=== PATIENT | male | born 1965 | race American Indian/Alaskan Native ===

== ENCOUNTER 2016-04-11 05:15 | Emergency (ER) | payer BC ==
[2016-04-11] MEDS ORDERED: NORCO 5/325 ONE (05:25)
[2016-04-11 05:39] VITALS: BP 154/99
[2016-04-11] MEDS ORDERED: NORCO 5/325 PO ONE (06:27)
--- NOTE | 2016-04-11 08:19 | XRay Report ---
RIGHT SHOULDER RADIOGRAPHS INDICATION: Arm pain. COMPARISON: None similar at this institution. FINDINGS: Frontal and Y views of the right shoulder, 3 projections demonstrate normal humeral head contour, well positioned against the glenoid. Normal acromioclavicular joint. Preserved scapular contour. Normal visualized soft tissues, right ribs and lung. CONCLUSION: No acute right shoulder radiographic abnormality, as described. Thank you for the opportunity to participate in this patient's care.
--- NOTE | 2016-04-11 10:41 | Emergency Department Report ---
Chief Complaint: Extremity Problem,Nontraumatic Stated Complaint: RIGHT ARM PAIN Time Seen by Provider: 04/11/16 09:52 - HPI History of Present Illness: 50-year-old female presents today with right arm pain times one to 2 weeks. Denies recent injury or trauma. Patient states that he has history of neck injury and was diagnosed with a pinched nerve in his neck 15 years ago causing radiating pain to his right arm. Describes his pain as a 10 out of 10 constant , sharp, throbbing pain. Tried Motrin and ibuprofen without relief. Denies numbness, weakness, paresthesias. Denies fever, chills, nausea, vomiting, chest pain, shortness of breath, abdominal pain. - ROS Review of Systems: Per HPI - Exam Vital Signs: Vital Signs 04/11/16 05:21 Temperature 97.8 F Pulse Rate 87 Respiratory 20 Rate Blood Pressure 154/99 O2 Sat by Pulse 99 Oximetry Physical Exam: General: 50-year-old female in no acute distress. Well-developed, well- nourished. CV: Regular rate and rhythm. No murmurs rubs or gallops. Lungs: Clear to auscultation bilaterally. Abdomen: No tenderness to palpation. Nondistended. No guarding or rebound tenderness. Neck: No midline or paraspinal tenderness. Full range of motion. Left upper extremity: Full range of motion. Tenderness to palpation of shoulder joints, left trapezius and deltoid muscle groups. Normal sensation. 2 point discrimination intact. Peripheral pulses intact. Capillary refill less than 2 seconds. MSE screening note: Focused history and physical exam performed. Due to findings the following was ordered: ED Disposition for MSE Disposition: MEDICAL SCREENING EXAM-LEFT Condition: Stable Referrals: PRIMARY CARE, [Primary Care Provider] - 3-5 Days
== END 2016-04-11 10:37 | disposition left against medical advice (07) ==
LOC: ED 05:15
DX: M79.601 Pain in right arm (principal); Z53.21 Procedure and treatment not carried out due to patient leaving prior to being seen by health care provider

== ENCOUNTER 2018-07-01 06:06 | Emergency (ER) | payer BC ==
[2018-07-01 06:34] LABS: Basophils # (Auto) 0.1 K/mm3 (0.0-0.1); Eosinophils # (Auto) 0.1 K/mm3 (0.0-0.4); Eosinophils % (Auto) 1.3 % (0.0-4.3); Hematocrit 48.5 % (35.5-45.6); Hemoglobin 16.6 gm/dl (11.8-15.2); Lymphocytes # (Auto) 3.7 K/mm3 (1.2-5.4); Lymphocytes % (Auto) 45.9 % (13.4-35.0); Mean Corpuscular HGB Conc 34 % (32-34); Mean Corpuscular Volume 93 fl (84-94); Monocytes # (Auto) 0.6 K/mm3 (0.0-0.8); Monocytes % (Auto) 7.8 % (0.0-7.3); Platelet Count 298 K/mm3 (140-440); Red Blood Count 5.19 M/mm3 (3.65-5.03); Red Cell Distribution Width 13.4 % (13.2-15.2)
[2018-07-01 06:50] LABS: Bilirubin,Urine NEG (Negative); Blood,Urine SM (Negative); Color,Urine Yellow (Yellow); Mucus,Urine 2+ /HPF
[2018-07-01 06:57] LABS: Alanine Aminotransferase 19 units/L (7-56); Albumin 4.6 g/dL (3.9-5); BUN/Creatinine Ratio 11; Blood Urea Nitrogen 11 mg/dL (9-20); Calcium 9.5 mg/dL (8.4-10.2); Hemolysis Index 4
[2018-07-01] MEDS ORDERED: MORPHINE IV ONE ×2 (09:12→10:43)
[2018-07-01] MEDS ORDERED: ZOFRAN IV ONE (09:12)
[2018-07-01] MEDS ORDERED: NACL 0.9% 1000 ML 1,000 ML IV ONE (09:12)
--- NOTE | 2018-07-01 09:52 | Emergency Department Report ---
ED General Adult HPI - General Chief complaint: Abdominal Pain Stated complaint: ABD PAIN Time Seen by Provider: 07/01/18 08:48 Source: patient Mode of arrival: Ambulatory Limitations: No Limitations - History of Present Illness Initial comments: Patient complains a lot of quadrant pain for the last 2-3 weeks. Patient also complains of nausea and vomiting as well. Symptoms may worsen by eating. Recently seen at [facility] for same complaint and was discharged home with plan to Follow up with PCP -: Gradual Location: abdomen Radiation: non-radiation Severity scale (0 -10): 6 Quality: aching Consistency: constant Improves with: none Worsens with: none Associated Symptoms: denies other symptoms Treatments Prior to Arrival: none - Related Data Previous Rx's Medication Instructions Recorded Last Taken Type Famotidine [Pepcid] 20 mg PO BID #60 tablet 02/07/18 Unknown Rx HYDROcodone/APAP 5-325 [Colony 1 each PO Q6HR PRN #12 tablet 07/01/18 Unknown Rx 5/325] Ondansetron [Zofran Odt] 4 mg PO Q4HR PRN #20 tab.rapdis 07/01/18 Unknown Rx Promethazine [Phenergan TAB] 25 mg PO Q6HR PRN #20 tab 07/01/18 Unknown Rx Allergies Allergy/AdvReac Type Severity Reaction Status Date / Time No Known Allergies Allergy Verified 02/07/18 09:48 ED Review of Systems ROS: Stated complaint: ABD PAIN Other details as noted in HPI Comment: All other systems reviewed and negative Constitutional: denies: chills, fever Eyes: denies: eye pain, eye discharge, vision change ENT: denies: ear pain, throat pain Respiratory: denies: cough, shortness of breath, wheezing Cardiovascular: denies: chest pain, palpitations Endocrine: no symptoms reported Gastrointestinal: abdominal pain, nausea, vomiting. denies: diarrhea Genitourinary: denies: urgency, dysuria Musculoskeletal: denies: back pain, joint swelling, arthralgia Skin: denies: rash, lesions Neurological: denies: headache, weakness, paresthesias Psychiatric: denies: anxiety, depression Hematological/Lymphatic: denies: easy bleeding, easy bruising ED Past Medical Hx - Past Medical History Previous Medical History?: Yes Additional medical history: ulcer - Surgical History Past Surgical History?: No - Social History Smoking Status: Never Smoker Substance Use Type: Alcohol - Medications Home Medications: Home Medications Medication Instructions Recorded Confirmed Last Taken Type Famotidine [Pepcid] 20 mg PO BID #60 tablet 02/07/18 Unknown Rx HYDROcodone/APAP 5-325 [[place]ony 1 each PO Q6HR PRN #12 tablet 07/01/18 Unknown Rx 5/325] Ondansetron [Zofran Odt] 4 mg PO Q4HR PRN #20 tab.rapdis 07/01/18 Unknown Rx Promethazine [Phenergan TAB] 25 mg PO Q6HR PRN #20 tab 07/01/18 Unknown Rx ED Physical Exam - General Limitations: No Limitations General appearance: alert, in no apparent distress - Head Head exam: Present: atraumatic, normocephalic - Eye Eye exam: Present: normal appearance, PERRL, EOMI - ENT ENT exam: Present: mucous membranes moist - Neck Neck exam: Present: normal inspection - Respiratory Respiratory exam: Present: normal lung sounds bilaterally. Absent: respiratory distress, wheezes, rales - Cardiovascular Cardiovascular Exam: Present: regular rate, normal rhythm. Absent: systolic murmur, diastolic murmur, rubs, gallop - GI/Abdominal GI/Abdominal exam: Present: soft, tenderness (right upper quadrant tenderness to palpation), normal bowel sounds. Absent: distended - Rectal Rectal exam: Present: deferred - Extremities Exam Extremities exam: Present: normal inspection - Back Exam Back exam: Present: normal inspection - Neurological Exam Neurological exam: Present: alert, oriented X3 - Psychiatric Psychiatric exam: Present: normal affect, normal mood - Skin Skin exam: Present: warm, dry, intact, normal color. Absent: rash ED Course Vital Signs 07/01/18 07/01/18 06:09 06:12 Temperature 98.2 F 98.2 F Pulse Rate 105 H 102 H Respiratory 18 18 Rate Blood Pressure 168/100 168/100 O2 Sat by Pulse 97 98 Oximetry ED Medical Decision Making - Lab Data Result diagrams: 07/01/18 06:21 07/01/18 06:21 Lab Results 07/01/18 07/01/18 07/01/18 Range/Units 06:21 06:21 06:21 WBC 8.1 (4.5-11.0) K/mm3 RBC 5.19 H (3.65-5.03) M/mm3 Hgb 16.6 H (11.8-15.2) gm/dl Hct 48.5 H (35.5-45.6) % MCV 93 (84-94) fl MCH 32 (28-32) pg MCHC 34 (32-34) % RDW 13.4 (13.2-15.2) % Plt Count 298 (140-440) K/mm3 Lymph % (Auto) 45.9 H (13.4-35.0) % [place] % (Auto) 7.8 H (0.0-7.3) % Eos % (Auto) 1.3 (0.0-4.3) % Baso % (Auto) 1.0 (0.0-1.8) % Lymph # 3.7 (1.2-5.4) K/mm3 [place] # 0.6 (0.0-0.8) K/mm3 Eos # 0.1 (0.0-0.4) K/mm3 Baso # 0.1 (0.0-0.1) K/mm3 Seg Neutrophils % 44.0 (40.0-70.0) % Seg Neutrophils # 3.6 (1.8-7.7) K/mm3 Sodium 140 (137-145) mmol/L Potassium 4.1 (3.6-5.0) mmol/L Chloride 100.4 (98-107) mmol/L Carbon Dioxide 22 (22-30) mmol/L Anion Gap 22 mmol/L BUN 11 (9-20) mg/dL Creatinine 1.0 (0.8-1.5) mg/dL Estimated GFR > 60 ml/min BUN/Creatinine Ratio 11 % Glucose 117 H (75-100) mg/dL Calcium 9.5 (8.4-10.2) mg/dL Total Bilirubin 0.80 (0.1-1.2) mg/dL AST 21 (5-40) units/L ALT 19 (7-56) units/L Alkaline Phosphatase 95 (35-129) units/L Total Protein 8.2 (6.3-8.2) g/dL Albumin 4.6 (3.9-5) g/dL Albumin/Globulin Ratio 1.3 % Lipase (13-60) units/L Urine Color Yellow (Yellow) Urine Turbidity Hazy (Clear) Urine pH 5.0 (5.0-7.0) Ur Specific [place] 1.036 H (1.003-1.030) Urine Protein 30 mg/dl (Negative) mg/dL Urine Glucose (UA) Neg (Negative) mg/dL Urine Ketones 80 (Negative) mg/dL Urine Blood Sm (Negative) Urine Nitrite Neg (Negative) Urine Bilirubin Neg (Negative) Urine Urobilinogen 2.0 (<2.0) mg/dL Ur Leukocyte Esterase Neg (Negative) Urine WBC (Auto) 2.0 (0.0-6.0) /HPF Urine RBC (Auto) 24.0 (0.0-6.0) /HPF Urine Mucus 2+ /HPF 07/01/18 Range/Units 06:21 WBC (4.5-11.0) K/mm3 RBC (3.65-5.03) M/mm3 Hgb (11.8-15.2) gm/dl Hct (35.5-45.6) % MCV (84-94) fl MCH (28-32) pg MCHC (32-34) % RDW (13.2-15.2) % Plt Count (140-440) K/mm3 Lymph % (Auto) (13.4-35.0) % [place] % (Auto) (0.0-7.3) % Eos % (Auto) (0.0-4.3) % Baso % (Auto) (0.0-1.8) % Lymph # (1.2-5.4) K/mm3 [place] # (0.0-0.8) K/mm3 Eos # (0.0-0.4) K/mm3 Baso # (0.0-0.1) K/mm3 Seg Neutrophils % (40.0-70.0) % Seg Neutrophils # (1.8-7.7) K/mm3 Sodium (137-145) mmol/L Potassium (3.6-5.0) mmol/L Chloride (98-107) mmol/L Carbon Dioxide (22-30) mmol/L Anion Gap mmol/L BUN (9-20) mg/dL Creatinine (0.8-1.5) mg/dL Estimated GFR ml/min BUN/Creatinine Ratio % Glucose (75-100) mg/dL Calcium (8.4-10.2) mg/dL Total Bilirubin (0.1-1.2) mg/dL AST (5-40) units/L ALT (7-56) units/L Alkaline Phosphatase (35-129) units/L Total Protein (6.3-8.2) g/dL Albumin (3.9-5) g/dL Albumin/Globulin Ratio % Lipase 119 H (13-60) units/L Urine Color (Yellow) Urine Turbidity (Clear) Urine pH (5.0-7.0) Ur Specific [place] (1.003-1.030) Urine Protein (Negative) mg/dL Urine Glucose (UA) (Negative) mg/dL Urine Ketones (Negative) mg/dL Urine Blood (Negative) Urine Nitrite (Negative) Urine Bilirubin (Negative) Urine Urobilinogen (<2.0) mg/dL Ur Leukocyte Esterase (Negative) Urine WBC (Auto) (0.0-6.0) /HPF Urine RBC (Auto) (0.0-6.0) /HPF Urine Mucus /HPF - Radiology Data Radiology results: report reviewed - Medical Decision Making Discussed results with the patient Critical care attestation.: If time is entered above; I have spent that time in minutes in the direct care of this critically ill patient, excluding procedure time. ED Disposition Clinical Impression: Biliary colic Disposition: DC-01 TO HOME OR SELFCARE Is pt being admited?: No Does the pt Need Aspirin: No Condition: Stable Instructions: Biliary Colic (ED) Additional Instructions: return if worse Referrals: [facility] [Other] - 3-5 Days SHEILA LAKE DO [Staff Physician] - 3-5 Days Time of Disposition: 11:07
--- NOTE | 2018-07-01 10:34 | Ultrasound Report ---
ULTRASOUND ABDOMEN LIMITED: TECHNIQUE: Transabdominal ultrasound with color Doppler interrogation. HISTORY: right upper quadrant abdominal pain. COMPARISON: none. FINDINGS: LIVER: The liver parenchyma is slightly echogenic consistent with mild diffuse fatty infiltration. BILIARY SYSTEM: Normal. PANCREAS: Normal. RIGHT KIDNEY: Normal. PROXIMAL AORTA: Normal. ASCITES: None. IMPRESSION: Mild hepatic steatosis.
[2018-07-01 11:33] VITALS: BP 161/94
== END 2018-07-01 11:31 | disposition home or self-care (01) ==
LOC: ED 06:06
DX: K80.20 Calculus of gallbladder without cholecystitis without obstruction (principal)
CPT/HCPCS: 36415; 76705; 80053; 81001; 83690; 85025; 96361; 96374; 96375; 96376; 99284; J2270; J2405; J7030

== ENCOUNTER 2021-08-11 07:21 | Emergency (ER) | payer OTHER ==
[2021-08-11] MEDS ORDERED: dexAMETHasone 4 MG/ML VIAL IM ONE (11:11)
[2021-08-11] MEDS ORDERED: CYCLOBENZAPRINE 10 MG TAB PO ONE (11:12)
[2021-08-11] MEDS ORDERED: KETOROLAC 10 MG TAB PO ONE (11:12)
[2021-08-11] MEDS ORDERED: oxyCODONE /ACETAMINOPHEN 5-325MG TAB PO ONE (11:13)
--- NOTE | 2021-08-11 11:20 | Emergency Department Report ---
Upper Extremity - HPI Chief Complaint: Pain General Stated Complaint: ROTATOR CUFF/HIP PAIN Time Seen by Provider: 08/11/21 11:02 Upper Extremity: Right Shoulder Occurred When: >5 Days Severity: severe Symptoms: Yes Pain with Movement, Yes Limited Range of Movement, Yes Numbness, No Deformity, No Weakness, No Swelling, No Bruising/Ecchymosis, No Laceration or Abrasion Other History: 56-year-old black male with no past medical history presents to the emergency department for evaluation of right shoulder and bilateral hip pain. He states he has a history of a right rotator cuff repair for which he is scheduled to see an orthopedic surgeon to schedule surgery in the next week and a half but states that pain has been worse and almost unbearable. 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 He states that he did fall because of the pain a few days ago but did not have any injury. He states that he also has intermittent numbness and tingling to his right arm along with pain to his right neck area. He states that pain is 9 out of 10. He states that he was seen by his primary care provider a couple of weeks ago and given baclofen and ibuprofen but they have not improved this pain. ED Review of Systems ROS: Stated complaint: ROTATOR CUFF/HIP PAIN Other details as noted in HPI Comment: All other systems reviewed and negative Constitutional: denies: chills, fever ENT: denies: congestion Respiratory: denies: cough, shortness of breath, SOB with exertion, SOB at rest, stridor Cardiovascular: denies: chest pain, palpitations Gastrointestinal: denies: abdominal pain, nausea, vomiting, diarrhea, hematemesis, melena, hematochezia Musculoskeletal: denies: back pain Skin: denies: rash, lesions Neurological: denies: headache, weakness ED Past Medical Hx - Past Medical History Previous Medical History?: Yes Additional medical history: ulcer, gallstones - Social History Smoking Status: Never Smoker Substance Use Type: Alcohol - Medications Home Medications: Home Medications Medication Instructions Recorded Confirmed Last Taken Type Famotidine [Pepcid] 20 mg PO BID #60 tablet 02/07/18 Unknown Rx HYDROcodone/APAP 5-325 [White 1 each PO Q6HR PRN #12 tablet 07/01/18 Unknown Rx 5/325] Ondansetron [Zofran Odt] 4 mg PO Q4HR PRN #20 tab.rapdis 07/01/18 Unknown Rx Promethazine [Phenergan TAB] 25 mg PO Q6HR PRN #20 tab 07/01/18 Unknown Rx Famotidine [Acid Controller] 1 tab PO BID 30 Days #60 tablet 11/10/19 Unknown Rx Acetaminophen/Codeine [Tylenol 1 tab PO Q6H PRN #12 tab 08/11/21 Unknown Rx /Codeine # 3 tab] Cyclobenzaprine [Flexeril] 10 mg PO TID PRN #30 tab 08/11/21 Unknown Rx Lidocaine [Lidoderm] 1 each TP DAILY PRN #10 patch 08/11/21 Unknown Rx Naproxen [Naprosyn] 500 mg PO BID #14 tab 08/11/21 Unknown Rx methylPREDNISolone [Medrol 4MG 4 mg PO DAILY #1 pack 08/11/21 Unknown Rx DOSEPAK (21 tabs)] Upper Extremity Exam - Exam General: Vital signs noted. No distress. Alert and acting appropriately. ED Course Vital Signs 08/11/21 07:54 Temperature 97.9 F Pulse Rate 61 Respiratory 20 Rate Blood Pressure 137/83 [Left] O2 Sat by Pulse 100 Oximetry ED Medical Decision Making - Medical Decision Making 56-year-old black male with no past medical history presents to the emergency department for evaluation of right shoulder and bilateral hip pain. He states he has a history of a right rotator cuff repair for which he is scheduled to see an orthopedic surgeon to schedule surgery in the next week and a half but states that pain has been worse and almost unbearable. 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 He states that he did fall because of the pain a few days ago but did not have any injury. He states that he also has intermittent numbness and tingling to his right arm along with pain to his right neck area. He states that pain is 9 out of 10. He states that he was seen by his primary care provider a couple of weeks ago and given baclofen and ibuprofen but they have not improved this pain. Tenderness to right neck with increased numbness to right hand with palpation to area of neck that is painful. Decreased range of motion to right shoulder which patient states is not new. Exam consistent with right cervical radicular pain and bilateral hip pain. Patient will be treated with steroids, anti- inflammatories, muscle relaxants, and pain medications both in the emergency department and on discharge for home. He will also be given Lidoderm patch to place to the right shoulder to improve pain. He is advised to take medications as prescribed and follow-up with orthopedics as planned. He is advised to return to the emergency department for any concerning symptoms. He verbalizes understanding of and agreement with plan of care. Critical care attestation.: If time is entered above; I have spent that time in minutes in the direct care of this critically ill patient, excluding procedure time. ED Disposition Clinical Impression: Cervical radicular pain, Bilateral hip pain Disposition: HOME / SELF CARE / HOMELESS Is pt being admited?: No Does the pt Need Aspirin: No Condition: Stable Instructions: Musculoskeletal Pain, Cervical Radiculopathy, [id number] Additional Instructions: Take medications as prescribed. Follow-up with orthopedics as planned. Return to the emergency department for any concerning symptoms. Prescriptions: Cyclobenzaprine [Flexeril] 10 mg PO TID PRN #30 tab PRN Reason: Muscle Spasm Lidocaine [Lidoderm] 1 each TP DAILY PRN #10 patch PRN Reason: Pain, Moderate (4-6) methylPREDNISolone [Medrol 4MG DOSEPAK (21 tabs)] 4 mg PO DAILY #1 pack Naproxen [Naprosyn] 500 mg PO BID #14 tab Acetaminophen/Codeine [Tylenol /Codeine # 3 tab] 1 tab PO Q6H PRN #12 tab PRN Reason: Pain , Severe (7-10) Referrals: LATOYA MACARIO MD [Staff Physician] - 3-5 Days MARLYN ROCK MD [Staff Physician] - 3-5 Days Forms: Work/School Release Form(ED) Time of Disposition: 11:32 ED General adult EXAM - General General appearance: in no apparent distress Limitations: No Limitations - Head Head exam: Positive: atraumatic, normocephalic - Eye Eye exam: normal appearance - Neck Neck exam: Positive: normal inspection, tenderness. Negative: full ROM, lymphadenopathy (Right side only) - Respiratory Respiratory exam: Negative: respiratory distress, chest wall tenderness - Cardiovascular Cardiovascular Exam: Positive: regular rate Peripheral pulses: 2+: Radial (R) - GI/Abdominal GI/Abdominal exam: Negative: distended - Extremities Extremities exam: Positive: normal inspection, tenderness (To right shoulder with touch and decrease range of motion to right shoulder. Tenderness to palpation to bilateral hip areas but patient able to ambulate around room.), normal capillary refill. Negative: pedal edema, joint swelling, calf tenderness - Back Back exam: normal inspection. denies: tenderness, CVA tenderness (R), CVA tenderness (L), vertebral tenderness - Neurological Neurological exam: Positive: alert, oriented X3 - Psychiatric Psychiatric exam: Positive: normal affect, normal mood - Skin Skin exam: Positive: warm, dry, intact, normal color
[2021-08-11 12:33] VITALS: BP 138/89
== END 2021-08-11 12:31 | disposition home or self-care (01) ==
LOC: ED 07:21
DX: M54.12 Radiculopathy, cervical region (principal); M25.551 Pain in right hip; M25.552 Pain in left hip; F10.20 Alcohol dependence, uncomplicated
CPT/HCPCS: 96372; 99282; J1100

== ENCOUNTER 2021-12-19 08:59 | Emergency (ER) | payer OTHER ==
--- NOTE | 2021-12-19 13:12 | XRay Report ---
CHEST 2 VIEWS INDICATION / CLINICAL INFORMATION: Chest Pain. COMPARISON: None available. FINDINGS: SUPPORT DEVICES: None. HEART / MEDIASTINUM: No significant abnormality. LUNGS / PLEURA: No significant pulmonary or pleural abnormality. No pneumothorax. ADDITIONAL FINDINGS: No significant additional findings. IMPRESSION: 1. No acute findings. Signer Name: Santhosh Vera Jr, MD Signed: 12/19/2021 1:08 PM Workstation Name: [id number]
--- NOTE | 2021-12-19 13:51 | Emergency Department Report ---
<HILLARY SLOAN - Last Filed: 12/20/21 12:46> ED General Adult HPI - General Chief complaint: Neck Pain/Injury Stated complaint: NECK PAIN, LFT SHOULDER PAIN, ARM PAIN PUI?: No Time Seen by Provider: 12/19/21 12:44 Source: patient Mode of arrival: Ambulatory Limitations: No Limitations - History of Present Illness Initial comments: Mr. Petty is a 56-year-old -[place] male that comes to the ER with left shoulder pain radiating to his arm and back. This is associated with nausea and shortness of breath. He denies any cardiac history. He does have a family history of coronary disease. Patient is hypertensive and obese. He smokes and indulges in marijuana. He states that he is on 3 blood pressure medicines a day. He cannot tell me the name of them there are small pink pills. He also is on gabapentin for pain. Patient has been immunized for COVID. Patient has not seen his primary care doctor. Patient's blood pressure noted to be elevated on arrival. He states that he did take his blood pressure medications. Patient has no tachycardia or bradycardia. He has no fever or chills. He is ambulatory to fast track -: Gradual, days(s) Location: head Radiation: other Severity scale (0 -10): 6 Quality: aching Consistency: constant Improves with: none Worsens with: none Associated Symptoms: denies other symptoms, chest pain, headaches, shortness of breath. denies: confusion, cough, diaphoresis, fever/chills, loss of appetite, malaise, nausea/vomiting, rash, seizure, syncope, weakness Treatments Prior to Arrival: none - Related Data Previous Rx's Medication Instructions Recorded Last Taken Type Acetaminophen/Codeine [Tylenol 1 tab PO Q6H PRN #12 tab 12/19/21 Unknown Rx /Codeine # 3 tab] Cyclobenzaprine [Flexeril] 10 mg PO TID PRN #10 tablet 12/19/21 Unknown Rx Allergies Allergy/AdvReac Type Severity Reaction Status Date / Time No Known Allergies Allergy Verified 08/11/21 07:55 ED Review of Systems Comment: All other systems reviewed and negative ED Past Medical Hx - Past Medical History Previous Medical History?: Yes Hx Hypertension: Yes Additional medical history: ulcer, gallstones, obese - Surgical History Past Surgical History?: No - Family History Family history: other (Family history of coronary disease) - Social History Smoking Status: Never Smoker Substance Use Type: Alcohol, Marijuana - Medications Home Medications: Home Medications Medication Instructions Recorded Confirmed Last Taken Type Acetaminophen/Codeine [Tylenol 1 tab PO Q6H PRN #12 tab 12/19/21 Unknown Rx /Codeine # 3 tab] Cyclobenzaprine [Flexeril] 10 mg PO TID PRN #10 tablet 12/19/21 Unknown Rx ED Physical Exam - General Limitations: No Limitations General appearance: alert, in no apparent distress - Head Head exam: Present: atraumatic, normocephalic - Eye Eye exam: Present: normal appearance - ENT ENT exam: Present: mucous membranes moist - Neck Neck exam: Present: normal inspection - Respiratory Respiratory exam: Present: normal lung sounds bilaterally. Absent: respiratory distress - Cardiovascular Cardiovascular Exam: Present: regular rate, normal rhythm. Absent: systolic murmur, diastolic murmur, rubs, gallop - GI/Abdominal GI/Abdominal exam: Present: soft, normal bowel sounds - Rectal Rectal exam: Present: deferred - Extremities Exam Extremities exam: Present: normal inspection - Back Exam Back exam: Present: normal inspection - Neurological Exam Neurological exam: Present: alert, oriented X3 - Psychiatric Psychiatric exam: Present: normal affect, normal mood - Skin Skin exam: Present: warm, dry, intact, normal color. Absent: rash ED Medical Decision Making - Lab Data Result diagrams: 12/19/21 13:11 12/19/21 13:11 - EKG Data -: EKG Interpreted by Me EKG shows normal: sinus rhythm Rate: normal - EKG Data When compared to previous EKG there are: no significant change Interpretation: no acute changes - Radiology Data Radiology results: report reviewed, image reviewed See report - Medical Decision Making Lab Results 12/19/21 12/19/21 Range/Units 13:11 13:11 WBC 7.6 (4.5-11.0) K/mm3 RBC 5.12 H (3.65-5.03) M/mm3 Hgb 15.9 H (11.8-15.2) gm/dl Hct 48.5 H (35.5-45.6) % MCV 95 H (84-94) fl MCH 31 (28-32) pg MCHC 33 (32-34) % RDW 13.6 (13.2-15.2) % Plt Count 273 (140-440) K/mm3 Lymph % (Auto) 47.2 H (13.4-35.0) % Pine % (Auto) 7.3 (0.0-7.3) % Eos % (Auto) 1.4 (0.0-4.3) % Baso % (Auto) 0.6 (0.0-1.8) % Lymph # (Auto) 3.6 (1.2-5.4) K/mm3 Pine # (Auto) 0.6 (0.0-0.8) K/mm3 Eos # (Auto) 0.1 (0.0-0.4) K/mm3 Baso # (Auto) 0.0 (0.0-0.1) K/mm3 Seg Neutrophils % 43.5 (40.0-70.0) % Seg Neutrophils # 3.3 (1.8-7.7) K/mm3 Sodium 140 (137-145) mmol/L Potassium 4.4 (3.6-5.0) mmol/L Chloride 101.2 (98-107) mmol/L Carbon Dioxide 24 (22-30) mmol/L Anion Gap 19 mmol/L BUN 8 L (9-20) mg/dL Creatinine 0.9 (0.8-1.3) mg/dL Estimated GFR > 60 ml/min BUN/Creatinine Ratio 9 % Glucose 100 (75-100) mg/dL Calcium 10.0 (8.4-10.2) mg/dL Total Bilirubin 0.60 (0.1-1.2) mg/dL AST 35 (5-40) units/L ALT 35 (7-56) units/L Alkaline Phosphatase 98 (35-129) units/L Troponin T < 0.010 (0.00-0.029) ng/mL Total Protein 7.7 (6.3-8.2) g/dL Albumin 5.1 H (3.9-5) g/dL Albumin/Globulin Ratio 2.0 % Vital Signs 12/19/21 12/19/21 12/19/21 09:11 15:20 15:43 Temperature 98.9 F Pulse Rate 65 89 Respiratory 16 Rate Blood Pressure 195/134 Blood Pressure 176/102 [Right] O2 Sat by Pulse 98 99 Oximetry EKG noted. Troponin negative. Chest x-ray no acute process Labs noted. Patient medicated with clonidine for his blood pressure. His blood pressure taken by KATHY at 415 was 150/90. I cannot alter patient's medications because he cannot tell me the name of the medications that he is taking. I have explained this to the patient that he likely needs his medications adjusted and that he is continue to see his primary care to do so. We have discussed the applications of long-term unmanaged blood pressure. He verbalizes understanding. On discharge exam patient is ambulatory, not ill nontoxic. Patient does report that the shoulder pain is gotten better. Patient taking p.o. Patient being discharged home with discharge plan of care including diet, activity, medications and follow-up. He verbalizes understanding of plan of care. - Differential Diagnosis Rule out ACS, acute on chronic hypertension rule out endorgan dysfunction ED Disposition Clinical Impression: Musculoskeletal pain HTN (hypertension) Qualifiers: Hypertension type: unspecified Qualified Code(s): I10 - Essential (primary) hypertension Shoulder pain Qualifiers: Laterality: left Disposition: 01 HOME / SELF CARE / HOMELESS Is pt being admited?: No Does the pt Need Aspirin: No Condition: Stable Instructions: Preventing Hypertension, Hypertension (ED) Additional Instructions: YOUR BLOOD PRESSURE IS HIGH CONTINUE TO TAKE YOUR BP MEDS MONITOR YOUR BP YOU SHOULD SEE YOUR PCP MANDO BECAUSE HE NEEDS TO ADJUST YOUR MEDS MEDS ORDERED TODAY FOR PAIN STAY WELL HYDRATED LOW SALT DIET Prescriptions: Cyclobenzaprine [Flexeril] 10 mg PO TID PRN #10 tablet PRN Reason: Muscle Spasm Acetaminophen/Codeine [Tylenol /Codeine # 3 tab] 1 tab PO Q6H PRN #12 tab PRN Reason: Pain , Severe (7-10) Referrals: PRIMARY CAREMD [Primary Care Provider] - 3-5 Days MARLYN ROCK MD [Staff Physician] - 3-5 Days Forms: Work/School Release Form(ED) Time of Disposition: 17:18 <KLARISSA VELAZQUEZ - Last Filed: 12/21/21 00:34> ED Review of Systems ROS: Stated complaint: NECK PAIN, LFT SHOULDER PAIN, ARM PAIN Other details as noted in HPI ED Course Vital Signs 12/19/21 12/19/21 12/19/21 09:11 15:20 15:30 Temperature 98.9 F Pulse Rate 65 Respiratory 16 Rate Blood Pressure 184/96 Blood Pressure 176/102 [Right] O2 Sat by Pulse 98 99 96 Oximetry 12/19/21 12/19/21 12/19/21 15:43 15:46 16:00 Temperature Pulse Rate 89 Respiratory Rate Blood Pressure 195/134 182/106 182/106 Blood Pressure [Right] O2 Sat by Pulse 97 99 Oximetry 12/19/21 12/19/21 12/19/21 16:16 17:33 17:34 Temperature Pulse Rate 71 Respiratory 18 Rate Blood Pressure 182/106 182/106 Blood Pressure 154/93 [Right] O2 Sat by Pulse 97 99 100 Oximetry ED Medical Decision Making - Lab Data Result diagrams: 12/19/21 13:11 12/19/21 13:11 - Medical Decision Making This patient was seen independently by the midlevel provider. I was available for consult however I was not involved in the decision making or the disposition of this patient. Klarissa Velazquez Critical care attestation.: If time is entered above; I have spent that time in minutes in the direct care of this critically ill patient, excluding procedure time. ED Disposition Is pt being admited?: No
[2021-12-19] MEDS ORDERED: cloNIDine 0.1 MG TAB PO ONE (14:16)
[2021-12-19 14:36] LABS: Basophils % (Auto) 0.6 % (0.0-1.8); Eosinophils # (Auto) 0.1 K/mm3 (0.0-0.4); Eosinophils % (Auto) 1.4 % (0.0-4.3); Hematocrit 48.5 % (35.5-45.6); Hemoglobin 15.9 gm/dl (11.8-15.2); Lymphocytes # (Auto) 3.6 K/mm3 (1.2-5.4); Lymphocytes % (Auto) 47.2 % (13.4-35.0); Mean Corpuscular HGB Conc 33 % (32-34); Mean Corpuscular Volume 95 fl (84-94); Monocytes # (Auto) 0.6 K/mm3 (0.0-0.8); Monocytes % (Auto) 7.3 % (0.0-7.3); Platelet Count 273 K/mm3 (140-440); Red Blood Count 5.12 M/mm3 (3.65-5.03); Red Cell Distribution Width 13.6 % (13.2-15.2)
[2021-12-19 15:02] LABS: Alanine Aminotransferase 35 units/L (7-56); Albumin 5.1 g/dL (3.9-5); BUN/Creatinine Ratio 9; Blood Urea Nitrogen 8 mg/dL (9-20); Hemolysis Index 8
[2021-12-19] MEDS ORDERED: HYDROcodone/ACETAMINOPHEN 5-325 MG TAB PO ONE (17:17)
[2021-12-19] MEDS ORDERED: CYCLOBENZAPRINE 10 MG TAB PO ONE (17:17)
[2021-12-19 17:35] VITALS: BP 154/93
== END 2021-12-19 17:44 | disposition home or self-care (01) ==
LOC: ED 08:59
DX: M25.512 Pain in left shoulder (principal); M79.18 Myalgia, other site; I10 Essential (primary) hypertension; R06.02 Shortness of breath; F12.90 Cannabis use, unspecified, uncomplicated; Z72.89 Other problems related to lifestyle; Z79.899 Other long term (current) drug therapy
CPT/HCPCS: 36415; 71046; 80053; 84484; 85025; 93005; 99284